=== PATIENT | female | born 1965 | race Caucasian/White ===

== ENCOUNTER 2017-03-15 09:09 | Emergency (ER) | payer OTHER ==
[~2017-03-15] VITALS: Ht 149.9 cm; Wt 65.1 kg
[2017-03-15 09:11] VITALS: BP 113/78
[2017-03-15 10:11] LABS: BLOOD UREA NITROGEN 8 mg/dL (7-18)
[2017-03-15 10:14] LABS: PATH.CAST-FLAG NOT PRESENT; SPERM-FLAG NOT PRESENT; SRC-FLAG NOT PRESENT; XTAL-FLAG NOT PRESENT; YLC-FLAG NOT PRESENT
== END 2017-03-15 10:56 | disposition home or self-care (01) ==
LOC: ED 09:51
DX: B34.9 Viral infection, unspecified (principal)
CPT/HCPCS: 36415; 71020; 80048; 81001; 82040; 85025; 99285